=== PATIENT | female | born 1960 | race Caucasian/White ===

== ENCOUNTER 2020-01-11 10:59 | Outpatient (CLI) | payer BC, SELFPAY ==
--- NOTE | ~2020-01-11 | XR_ITS ---
EXAMINATION: XR abdomen/kub 1V EXAM DATE: 01/11/2020 11:26 INDICATION: Microscopic hematuria. TECHNIQUE: Frontal projection(s) of the abdomen for interpretation. Correlation is made to urogram sa me date. FINDINGS: There is expected amount of colonic stool and gas. No small bowel dilation, nonobstructiv e bowel gas pattern. Calcifications in the pelvis are believed to be phleboliths. There is no orga nomegaly suspected. Mild to moderate thoracolumbar dextroscoliosis. There are cholecystectomy clips. . There are cholecystectomy clips. IMPRESSION: Unremarkable abdomen x-ray exam. Reviewed, dictated and finalized at location B. ALCOHOLIZER
--- NOTE | ~2020-01-11 | CT_ITS ---
EXAMINATION: CT abdomen pelvis wo/w con EXAM DATE: 01/11/2020 11:47 INDICATION: Microscopic hematuria. TECHNIQUE: Spiral CT of the abdomen and pelvis was performed without contrast. The patient was then injected with small bolus intravenous Omnipaque 350, followed by delay of approximately 10 minutes to allow collecting system to opacify. A post contrast scan abdomen and pelvis was performed during inj ection of remaining contrast. A total of 130 cc intravenous contrast was administered. The dose-disha th product (DLP) for this examination was 1119.80 mGy-cm. The exposure was tailored according to pat ient size (auto mA exposure control), and iterative reconstruction (ASIR) was used as additional dose reduction technique. There is no prior study for comparison. FINDINGS: There is no hydronephrosis or nephrolithiasis. There is a 1.1 cm cyst in the midpole of th e left kidney. The kidneys enhance symmetrically. There are no suspicious renal lesions. The calyc es and opacified portions of ureters are unremarkable, without filling defects or focal suspicious st rictures. The bladder is unremarkable. The uterus is unremarkable. The liver, spleen, adrenal glands and pancreas are unremarkable. There are cholecystectomy clips. T here is no retroperitoneal or pelvic lymphadenopathy. There is mild scattered arteriosclerotic dise ase. The appendix is normal. The stomach and small bowel are unremarkable. There is mild sigmoid colonic diverticulosis. There is no adjacent inflammatory change to suggest diverticulitis. There is expecte d amount of colonic stool. No free intraperitoneal gas. The heart is normal in size. There are n o pericardial or pleural effusions. The lung bases are unremarkable. Mild to moderate thoracolumbar dextroscoliosis. IMPRESSION: 1. No suspicious genitourinary findings. 2. Mild sigmoid diverticulosis. Reviewed, dictated and finalized at location B. FOOTBALL COACH
[2020-01-11 11:26] LABS: Estimated Glomerular Filt Rate > 60
== END 2020-01-11 11:00 | disposition home or self-care (01) ==
PROVIDERS: PCP Nurse Practitioner Family; Visit Provider Urology
DX: R31.1 Benign essential microscopic hematuria (principal); K57.30 Diverticulosis of large intestine without perforation or abscess without bleeding
CPT/HCPCS: 74018; 74178; Q9967

== ENCOUNTER 2020-03-11 00:16 | Outpatient (CLI) | payer BC, SELFPAY ==
[2020-03-11 18:50] LABS: SARS-CoV-2 RNA PCR Negative
== END 2020-03-11 00:17 | disposition home or self-care (01) ==
LOC: ANHCOVIDDT 00:17
PROVIDERS: PCP Nurse Practitioner Family; Visit Provider Internal Medicine Gastroenterology
DX: Z01.812 Encounter for preprocedural laboratory examination (principal); Z20.822 Contact with and (suspected) exposure to COVID-19
CPT/HCPCS: C9803; U0003

== ENCOUNTER 2020-03-14 00:26 | Day surgery (SDC) | payer BC, SELFPAY ==
[2020-02-26 15:10] VITALS: BMI 27.5
[2020-03-14 06:20] VITALS: BP 137/81; PULSE 87; RESP 20; TEMP 36.6; O2SAT 99; BMI 28.3
[2020-03-14] MEDS: LACTATED RINGERS 1,000 ML 150 ML IV CONT (06:33)
--- NOTE | 2020-03-14 07:16 | P.PNAN_ITS ---
Anes - Initial Pre Proc Eval Procedure: Operation Date: 03/14/20 07:30 Proposed Procedures p Esophagogastroduodenoscopy - Clinton Trinidad DO Date/Time: 03/14/20 07:16 Surgeon: Clinton Trinidad DO Pre Op Diagnosis: GERD Patient Data Age: 59 Gender: F Height: 5 ft 2 in Weight: 70.3 kg Last Vital Signs Temp 97.8 F 03/14/20 06:20 Pulse 87 03/14/20 06:20 Resp 20 03/14/20 06:20 BP 137/81 03/14/20 06:20 Pulse Ox 99 03/14/20 06:20 Allergies Allergy/AdvReac Type Severity Reaction Status Date / Time No Known Allergies Allergy Verified 03/14/20 06:19 Home Medications Medication Instructions Recorded Confirmed Type levothyroxine 200 mcg PO DAILY 02/26/20 02/26/20 History meclizine 25 mg PO PRN PRN 02/26/20 02/26/20 History omeprazole 20 mg PO DAILY 02/26/20 02/26/20 History prednisone 20 mg PO DAILY 02/26/20 02/26/20 History Patient hx anesthesia problems: none Family hx anesthesia problems: none [facility] Past Medical History Medical History (Updated 03/14/20 @ 07:16 by Devendra Magana MD) Anxiety Hypothyroid Social History Social History Smoking packs per day: 1 Smoking cigarettes per day: 20.0 Years smoked: 20 Smoking pack-years: 20.00 Smoking status: Current every day smoker Tobacco type: cigarettes Alcohol intake: current Substance use: never Substance use type: unknown Living arrangements: with family Spiritual care concerns: No Anes - Eval Final PreProcedure Day of Procedure 03/14/20 07:16 Patient weight: normal Heart: regular rate and rhythm Lungs: clear to auscultation Airway: Mallampati scale class II Neurological: alert and oriented Last oral intake: >/= 8 hours ASA classification: II Emergent: no Anesthetic plan: proceed Anesthesia type and monitoring: general GIVS and standard monitoring Informed Consent: The patient's anesthetic plan and its attendant risks and benefits were discussed with the patient/family/POA. Questions were solicited and answers provided to the satisfaction of the patient/family/POA.
--- NOTE | 2020-03-14 07:26 | P.HP_ITS ---
H&P: HPI History of Present Illness Date/Time: 03/14/20 07:26 Chief Complaint: EGD. Narrative: Reason for visit: EGD. This very pleasant lady seen in consultation request of the primary physician. Impression: Your very pleasant lady with nausea and heartburn. This compatible with underlying reflux disease. This improved on omeprazole. Patient due for screening colonoscopy. Anxiety. Hypothyroidism. Tobacco abuse. Recommendation: EGD. Colonoscopy schedule. Patient has been encouraged to quit smoking. History: This very pleasant lady was having complaints of nausea, cramping in heartburn. She was placed on omeprazole back in January. Her symptoms have not improved considerably. Vomiting, hematemesis, dysphagia and odynophagia tonight. She denies any hematochezia, melena or acholic stools. She has never had an EGD or colonoscopy. Patient has a history of hematuria. Physical examination: General: very pleasant patient in no acute distress. HEENT: Head was normocephalic sclerae is clear mouth without masses neck was supple. Heart: Rate rhythm regular without S3 or S4. Lungs: CTA. Abdomen: Soft with no guarding or rigidity. Bowel sounds were active. Neurologic: Cranial nerves 2 through 12 intact. No focal defects. No clonus. Musculoskeletal system: Revealed no joint tenderness or swelling no muscle atrophy. Extremities: Reveal no significant edema. Skin: Warm and dry with normal turgor. Mental status: intact. Patient is alert and oriented. Review of Systems Review of Systems: All systems reviewed & are unremarkable except as noted in HPI and below [facility] Past Medical History Medical History (Updated 03/14/20 @ 07:25 by Clinton Trinidad DO) Anxiety GERD (gastroesophageal reflux disease) Hypothyroid Tobacco abuse Surgical History Surgical History (Updated 03/14/20 @ 07:25 by Clinton Trinidad DO) S/P laparoscopic cholecystectomy Social History Social History Smoking packs per day: 1 Smoking cigarettes per day: 20.0 Years smoked: 20 Smoking pack-years: 20.00 Smoking status: Current every day smoker Tobacco type: cigarettes Alcohol intake: current Substance use: never Substance use type: unknown Living arrangements: with family Spiritual care concerns: No Meds Home Medications and Allergies Home Medications Medication Instructions Recorded Confirmed Type levothyroxine 200 mcg PO DAILY 02/26/20 02/26/20 History meclizine 25 mg PO PRN PRN 02/26/20 02/26/20 History omeprazole 20 mg PO DAILY 02/26/20 02/26/20 History prednisone 20 mg PO DAILY 02/26/20 02/26/20 History Allergies Allergy/AdvReac Type Severity Reaction Status Date / Time No Known Allergies Allergy Verified 03/14/20 06:19 Vital Signs Vital Signs - 24 hr 03/14/20 06:20 Temperature 36.6 C Pulse Rate 87 Respiratory Rate 20 Blood Pressure 137/81 Pulse Oximetry 99
[2020-03-14] MEDS: BENZOCAINE (*SP) 60 ML SPRAY CAN (HURRICAINE) 1 SPRAY MUCOUS MEM (07:28)
[2020-03-14 07:39] VITALS: BP 117/77; PULSE 87; RESP 24; O2SAT 97
[2020-03-14 07:49] VITALS: BP 112/74; PULSE 77; RESP 22; O2SAT 98
[2020-03-14 07:59] VITALS: BP 111/75; PULSE 68; RESP 16; O2SAT 100
[2020-03-14 08:09] VITALS: BP 117/73; PULSE 70; RESP 24; O2SAT 100
== END 2020-03-14 08:23 | disposition home or self-care (01) ==
PROVIDERS: PCP Nurse Practitioner Family; Visit Provider Internal Medicine Gastroenterology
PROC: 0DJ08ZZ Inspection of Upper Intestinal Tract, Via Natural or Artificial Opening Endoscopic (ICD-10-PCS; CPT 43235; principal; 2020-03-14 07:30)
DX: K21.9 Gastro-esophageal reflux disease without esophagitis (principal); F41.9 Anxiety disorder, unspecified; E03.9 Hypothyroidism, unspecified; F17.210 Nicotine dependence, cigarettes, uncomplicated; K29.70 Gastritis, unspecified, without bleeding; R11.0 Nausea; R10.9 Unspecified abdominal pain; K29.60 Other gastritis without bleeding
CPT/HCPCS: 43239; 87081; 88305; C9803; J2001; J2704; J7120; U0003

== ENCOUNTER 2020-04-01 00:19 | Outpatient (CLI) | payer BC, SELFPAY ==
[2020-04-01 18:26] LABS: SARS-CoV-2 RNA PCR Negative
== END 2020-04-01 00:20 | disposition home or self-care (01) ==
LOC: ANHCOVIDDT 00:20
PROVIDERS: PCP Nurse Practitioner Family; Visit Provider Internal Medicine Gastroenterology
DX: Z01.812 Encounter for preprocedural laboratory examination (principal); Z20.822 Contact with and (suspected) exposure to COVID-19
CPT/HCPCS: C9803; U0003; U0005

== ENCOUNTER 2020-04-04 01:01 | Day surgery (SDC) | payer BC, SELFPAY ==
[2020-03-19 09:30] VITALS: BMI 28.2
[2020-04-04 06:19] VITALS: BP 127/78; PULSE 107; RESP 19; TEMP 36.9; O2SAT 96; BMI 27.4
[2020-04-04] MEDS: LACTATED RINGERS 1,000 ML 150 ML IV CONT (06:27)
--- NOTE | 2020-04-04 07:20 | P.PNAN_ITS ---
Anes - Initial Pre Proc Eval Procedure: Operation Date: 04/04/20 07:30 Proposed Procedures p Colonoscopy - Clinton Trinidad DO Date/Time: 04/04/20 07:20 Surgeon: Clinton Trinidad DO Pre Op Diagnosis: functional diarrhea Patient Data Age: 59 Gender: F Height: 5 ft 2 in Weight: 68.1 kg Last Vital Signs Temp 98.5 F 04/04/20 06:19 Pulse 107 H 04/04/20 06:19 Resp 19 04/04/20 06:19 BP 127/78 04/04/20 06:19 Pulse Ox 96 04/04/20 06:19 Allergies Allergy/AdvReac Type Severity Reaction Status Date / Time No Known Allergies Allergy Verified 04/04/20 06:18 Home Medications Medication Instructions Recorded Confirmed Type levothyroxine 200 mcg PO DAILY 02/26/20 04/04/20 History meclizine 25 mg PO PRN PRN 02/26/20 04/04/20 History omeprazole 20 mg PO DAILY 02/26/20 04/04/20 History cholestyramine (with sugar) 1 ea PO DAILY 03/19/20 04/04/20 History dicyclomine 20 mg PO DAILY PRN 03/19/20 04/04/20 History Patient hx anesthesia problems: none Family hx anesthesia problems: none [facility] Past Medical History Medical History (Updated 03/14/20 @ 07:25 by Clinton Trinidad DO) Anxiety GERD (gastroesophageal reflux disease) Hypothyroid Tobacco abuse Surgical History Surgical History (Updated 03/14/20 @ 07:25 by Clinton Trinidad DO) S/P laparoscopic cholecystectomy Social History Social History Smoking packs per day: 1 Smoking cigarettes per day: 20.0 Years smoked: 20 Smoking pack-years: 20.00 Smoking status: Current every day smoker Tobacco type: cigarettes Alcohol intake: current Substance use: never Substance use type: unknown Living arrangements: with family Spiritual care concerns: No Anes - Eval Final PreProcedure Day of Procedure 04/04/20 07:20 Patient weight: normal Heart: regular rate and rhythm Lungs: clear to auscultation Airway: Mallampati scale class II Neurological: alert and oriented Last oral intake: >/= 8 hours ASA classification: II Emergent: no Anesthetic plan: proceed Anesthesia type and monitoring: general GIVS and standard monitoring Informed Consent: The patient's anesthetic plan and its attendant risks and benefits were discussed with the patient/family/POA. Questions were solicited and answers provided to the satisfaction of the patient/family/POA.
--- NOTE | 2020-04-04 07:37 | WPDHPUPDATE1 ---
History and Physical Update Update Date/Time: 04/04/20 07:37 History and Physical has been reviewed, including an updated exam of the patient. There are NO changes in the patient's condition. Risks, benefits, and alternatives have been discussed and questions answered. Patient agrees to proceed with procedure.
[2020-04-04 08:00] VITALS: BP 111/65; PULSE 94; RESP 22; O2SAT 98
[2020-04-04 08:10] VITALS: BP 98/66; PULSE 85; RESP 22; O2SAT 98
[2020-04-04 08:20] VITALS: BP 103/63; PULSE 85; RESP 22; O2SAT 96
== END 2020-04-04 08:30 | disposition home or self-care (01) ==
PROVIDERS: PCP Nurse Practitioner Family; Visit Provider Internal Medicine Gastroenterology
PROC: 0DJD8ZZ Inspection of Lower Intestinal Tract, Via Natural or Artificial Opening Endoscopic (ICD-10-PCS; CPT 45378; principal; 2020-04-04 07:30)
DX: R19.7 Diarrhea, unspecified (principal); K64.8 Other hemorrhoids; K63.5 Polyp of colon; E03.9 Hypothyroidism, unspecified; K21.9 Gastro-esophageal reflux disease without esophagitis; F41.9 Anxiety disorder, unspecified; F17.210 Nicotine dependence, cigarettes, uncomplicated
CPT/HCPCS: 45380; 88305; C9803; J2704; J7120; U0003; U0005

== ENCOUNTER → 2021-04-26 09:52 | Outpatient (CLI) | payer BC, SELFPAY ==
--- NOTE | ~2021-04-26 | XR_ITS ---
EXAMINATION: XR chest 2V 04/26/2021 10:22 INDICATION: Acute cough PROCEDURE: 2 view chest COMPARISON: No prior studies for comparison. FINDINGS: The lungs are clear. The cardiomediastinal silhouette is within normal limits. There are no pleural effusions. There is no pneumothorax suspected. IMPRESSION: 1: NO ACUTE CARDIOPULMONARY DISEASE. Reviewed, dictated and finalized at location A. ENTATIVE MAINTENANCE TECHNICIAN
== END ==
PROVIDERS: PCP Nurse Practitioner Family; Visit Provider Nurse Practitioner Family
DX: R05.1 Acute cough (principal)
CPT/HCPCS: 71046

== ENCOUNTER 2021-10-08 16:07 | Emergency (ER) | payer BC, SELFPAY ==
--- NOTE | ~2021-10-08 | XR_ITS ---
EXAMINATION: XR hand LT min 3V DATE: 10/08/2021 16:23 INDICATION: Left hand pain post fall TECHNIQUE: Posteroanterior, oblique and lateral views of the left hand were obtained. COMPARISON: None. FINDINGS: Oblique extra articular fracture of the distal diaphysis of the left fifth metacarpal. There is one c ortical width palmar/radial displacement. . No other fractures identified. Joint spaces are relativel y preserved. Diffuse osteopenia. Small sclerotic likely bone island at the capitate. IMPRESSION: 1. Mildly displaced extra articular fracture of the left fifth metacarpal.. Reviewed, dictated and finalized at location A.
[2021-10-08 16:18] VITALS: BP 122/87; PULSE 95; RESP 16; TEMP 37.4; O2SAT 98
--- NOTE | 2021-10-08 16:51 | ED.UPPEXIN ---
HPI - Extremity Injury (Upper) General Chief Complaint: Extremity Injury, Upper Stated Complaint: injured hand Time Seen by Provider: 10/08/21 16:45 Source: patient and RN notes reviewed Mode of arrival: ambulatory Limitations: no limitations History of Present Illness HPI narrative: 60-year-old female presents with concern for left hand pain. Reports prior to arrival she tripped, fell, hit her hand against the wall. She reports pain, swelling, bruising to the dorsal aspect of the hand. MD complaint: injury to: left and hand Related Data Home Medications Medication Instructions Recorded Confirmed levothyroxine 200 mcg tablet 200 mcg PO DAILY 02/26/20 04/04/20 meclizine 25 mg tablet 25 mg PO PRN PRN Nausea 02/26/20 04/04/20 omeprazole 20 mg capsule,delayed 20 mg PO DAILY 02/26/20 04/04/20 release cholestyramine (with sugar) 4 gram 1 ea PO DAILY 03/19/20 04/04/20 powder for susp in a packet dicyclomine 20 mg tablet 20 mg PO DAILY PRN cramping 03/19/20 04/04/20 Allergies Allergy/AdvReac Type Severity Reaction Status Date / Time No Known Allergies Allergy Verified 06/04/21 14:43 Review of Systems Review of Systems: CONSTITUTIONAL: Denies malaise, chills, sweats, or fever. SKIN: Denies rash or itching, open skin, laceration, abrasion, redness, warmth MUSCULOSKELETAL: Reports left hand pain, swelling, bruising NEUROLOGIC: Denies numbness, weakness All systems reviewed & are unremarkable except as noted in HPI and below PMFSH Past Medical History Medical History (Updated 10/08/21 @ 16:53 by Alda Freed NP) Anxiety GERD (gastroesophageal reflux disease) Hypothyroid IBS (irritable bowel syndrome) D Tobacco abuse Surgical History Surgical History (Updated 06/04/21 @ 14:43 by Lakeshia Pascual) S/P laparoscopic cholecystectomy Social History Social History (System 06/04/21 @ 14:43 by Lakeshia Pascual) Smoking packs per day: 1 Smoking cigarettes per day: 20.0 Years smoked: 20 Smoking pack-years: 20.00 Smoking status: Current every day smoker Tobacco type: cigarettes Alcohol intake: current Substance use: never Substance use type: unknown Spiritual care concerns: No Comments At time of signature, agree with nursing past medical, surgical, social and family history. There is no relevant family history pertinent to the presenting complaint Exam Narrative: GENERAL: Well-appearing, well-nourished, and in no acute distress. HEAD: Normocephalic, atraumatic. EYES: PERRLA, conjunctivae clear NECK: Supple. CHEST: Speaks in full sentences. No respiratory distress. HEART: Regular rate and rhythm. Normal and equal peripheral pulses. EXTREMITIES: Left hand, digits have normal sensation, limited range of motion. Lateral hand edema and ecchymosis. 3/5 strength with fifth digit flexion and extension, pain with flexion. Normal sensation with sensitivity to light touch and pain. Lateral tenderness. No open wounds, no skin tenting, no devitalized tissue or atrophy, no trophic changes, no obvious deformity, alignment normal, nearby joints and structures intact. Distal pulses palpable and equal bilaterally, skin warm, dry, pink. Capillary refill less than 3 seconds. SKIN: Warm, dry, no rash. NEURO: Alert and oriented x3. PSYCH: Normal mood and affect Course Course Emergency Course: Patient is aware of diagnosis, understands and agrees to treatment plan. Anticipatory guidance given. Patient agrees to follow-up as directed and is aware of reasons to seek care at the emergency department. Portions of this record may have been created with voice recognition software Level of Care: Express Care Visit Vital Signs Vital signs: Vital Signs Temperature 99.4 F 10/08/21 16:18 Pulse Rate 95 10/08/21 16:18 Respiratory Rate 16 10/08/21 16:18 Blood Pressure 122/87 10/08/21 16:18 Pulse Oximetry 98 10/08/21 16:18 Temperature 99.4 F 10/08/21 16:18 Pulse Rate 95 10/08/21
== END 2021-10-08 17:10 | disposition home or self-care (01) ==
PROVIDERS: Emergency Provider Nurse Practitioner; PCP Physician Assistant
DX: S62.307A Unspecified fracture of fifth metacarpal bone, left hand, initial encounter for closed fracture (principal); W01.0XXA Fall on same level from slipping, tripping and stumbling without subsequent striking against object, initial encounter; F17.210 Nicotine dependence, cigarettes, uncomplicated; K21.9 Gastro-esophageal reflux disease without esophagitis; E03.9 Hypothyroidism, unspecified
CPT/HCPCS: 29125; 73130; 99214; A4565; G0463

== ENCOUNTER 2023-03-04 10:35 | Outpatient (CLI) | payer BC, SELFPAY ==
--- NOTE | ~2023-03-04 | CT_ITS ---
EXAMINATION: CT abdomen pelvis w con DATE: 03/04/2023 11:09 INDICATION: Unspecified abdominal pain. TECHNIQUE: Computed tomography (CT) of the abdomen and pelvis was performed with 100 mL Omnipaque 350 intravenous contrast. Automated exposure control and iterative reconstruction technique were employe d. The dose-length product was 492.59 mGy-cm. COMPARISON: CT abdomen and pelvis 01/11/2020 FINDINGS: The visualized portions of the lung bases demonstrate mild atelectasis. No pleural effusion . The heart size is normal. No pericardial effusion. There is a 15 mm cyst in the liver. Calcificatio ns in the liver are consistent with old granulomatous disease. There are changes of cholecystectomy. The pancreas and adrenal glands are normal. There is cortical thinning of the kidneys. There is a 14 mm cyst in left kidney. There is diverticulosis of the colon without evidence of diverticulitis. Ther e are no dilated loops of bowel. The appendix is normal. There are no pathologically enlarged lymph n odes. There is no free intraperitoneal fluid. Aortic atherosclerosis is noted. There is 16 degrees de xtroscoliosis of thoracolumbar spine. There is severe lumbar spondylosis. IMPRESSION: 1. No etiology for the patient's symptoms. Reviewed, dictated and finalized at location A. [facility]
[2023-03-04 11:03] LABS: Estimated Glomerular Filt Rate > 60
== END 2023-03-04 10:36 | disposition home or self-care (01) ==
PROVIDERS: PCP Physician Assistant; Visit Provider Nurse Practitioner Family
DX: R10.9 Unspecified abdominal pain (principal); R19.7 Diarrhea, unspecified
CPT/HCPCS: 74177; Q9967

== ENCOUNTER 2023-05-19 10:40 | Emergency (ER) | payer BC, SELFPAY ==
--- NOTE | 2023-05-19 10:47 | ED.URI ---
HPI - URI/Sore Throat General Chief Complaint: Upper Respiratory Infection Stated Complaint: sore throat Time Seen by Provider: 05/19/23 10:47 Source: patient Mode of arrival: ambulatory Limitations: no limitations History of Present Illness HPI Narrative: Russell is a 62-year-old female patient presenting to the clinic today with complaints of a fever, sore throat, cough, runny nose/congestion x2 days. MD elicited complaint: sore throat and nasal congestion Related Data Home Medications Medication Instructions Recorded Confirmed levothyroxine 200 mcg tablet 200 mcg PO DAILY 02/26/20 05/19/23 alprazolam 0.5 mg tablet (Xanax) 0.5 mg PO QHS PRN Anxiety 02/08/23 05/19/23 escitalopram oxalate 10 mg tablet 10 mg PO DAILY 02/08/23 05/19/23 metformin 750 mg tablet,extended 750 mg PO DAILY 05/19/23 05/19/23 release 24 hr Allergies Allergy/AdvReac Type Severity Reaction Status Date / Time No Known Allergies Allergy Verified 05/19/23 10:47 Review of Systems Review of Systems: Pertinent positives per HPI. Patient denies any fever, chills, rash, headache, visual changes, dizziness, shortness of breath, chest pain, palpitations, nausea, vomiting, diarrhea, constipation, abdominal pain, or any urinary issues. PMFSH Past Medical History Medical History Abdominal pain Anxiety Borderline diabetes GERD (gastroesophageal reflux disease) Hypothyroid IBS (irritable bowel syndrome) D Thyroid disease Tobacco abuse Tobacco use Surgical History Surgical History S/P laparoscopic cholecystectomy Family History Family History Mother ALS (amyotrophic lateral sclerosis) Father Arthritis Social History Social History Smoking packs per day: 1 Smoking cigarettes per day: 20.0 Years smoked: 20 Smoking pack-years: 20.00 Smoking status: Current every day smoker Tobacco type: cigarettes Alcohol intake: never Substance use: never Substance use type: unknown Living arrangements: with family Spiritual care concerns: No Comments At the time of my signature, I reviewed and agree with the nursing past medical, surgical, social, and family history. There is no relevant family history pertinent to the patient complaint. Exam Narrative: General: Well-developed, well nourished, in no apparent distress Head: Normocephalic, atraumatic Eyes: Pupils equally round and reactive to light bilaterally, EOM intact, sclera and conjunctive clear, no discharge, lids normal Ears: TMs intact and clear, ear canals clear, no drainage, grossly hearing normal. Nose: Nares patent, no discharge, no inflammation, no sinus tenderness. Mouth: Oral pharynx without lesions or masses, good dentition, MMM. Neck: Supple, trachea midline, no enlargement of anterior or posterior cervical nodes, no thyroid masses or goiter palpable. Cardio: Regular rate and rhythm, s1 and s2 normal, no murmur appreciated. Resp: Clear to auscultation bilaterally, no rhonchi, rales, wheezing or rubs Course Course Emergency Course: Portions of this record may have been created with voice recognition software. Level of Care: Express Care Visit Vital Signs Vital signs: Vital signs reviewed MDM - URI/Sore Throat MDM Narrative Medical decision making narrative: At the time of visit patient is resting comfortably on the exam table. Patient appears to be nontoxic. Labs: COVID, influenza, and strep test were all negative in the clinic today. We will send strep for culture Plan: I suspect patient has URI/pharyngitis/viral syndrome. Supportive measures were discussed with the patient and they voiced understanding discharge instructions and agrees to treatment plan. Return precautions reviewed Differential Diagnosis Differential diagnosis: Likely upper respirat
[2023-05-19 10:49] VITALS: BP 112/82; PULSE 88; RESP 16; TEMP 37.2; O2SAT 99
== END 2023-05-19 11:13 | disposition home or self-care (01) ==
PROVIDERS: Emergency Provider Nurse Practitioner Family; PCP Nurse Practitioner Family
DX: B34.9 Viral infection, unspecified (principal); J06.9 Acute upper respiratory infection, unspecified; J02.9 Acute pharyngitis, unspecified; F17.210 Nicotine dependence, cigarettes, uncomplicated; K21.9 Gastro-esophageal reflux disease without esophagitis; E03.9 Hypothyroidism, unspecified; F41.9 Anxiety disorder, unspecified
CPT/HCPCS: 87081; 87804; 87880; 99213; G0463

== ENCOUNTER 2023-11-04 15:52 | Emergency (ER) | payer BC, SELFPAY ==
[2023-11-04 16:04] VITALS: BP 145/73; PULSE 103; RESP 15; TEMP 37.3; O2SAT 97
--- NOTE | 2023-11-04 16:33 | ED.URI ---
HPI - URI/Sore Throat General Chief Complaint: Upper Respiratory Infection Stated Complaint: MOORE,bodyaches,congested,fever Time Seen by Provider: 11/04/23 16:33 Source: patient, RN notes reviewed and old records reviewed Mode of arrival: ambulatory Limitations: no limitations History of Present Illness HPI Narrative: Patient presents with complaints of longstanding cough. She recently finished Augmentin, has been on doxycycline for a couple of days. She reports that she had to cancel a pulmonology appointment because she did not feel well enough to go, this has been rescheduled. Patient would like to know why her cough is so longstanding. She has not been using albuterol inhaler as prescribed. She has taken 3 doses of her doxycycline. She does report that she feels better since starting the doxycycline, but she is frustrated that symptoms have not completely subsided. She denies any fever, chills, sweats. She does report becoming short of breath when she coughs too hard. She recently had a cardiac workup, negative. She denies any fever, chills, sweats. She voices no other concerns or complaints at this time. Related Data Home Medications Medication Instructions Recorded Confirmed alprazolam 0.5 mg tablet (Xanax) 0.5 mg PO QHS PRN Anxiety 02/08/23 11/04/23 fluticasone propionate 50 2 inh inhalation Q12H 08/16/23 11/04/23 mcg/actuation blister powder for inhalation Allergies Allergy/AdvReac Type Severity Reaction Status Date / Time No Known Allergies Allergy Verified 11/04/23 15:59 Review of Systems Review of Systems: All systems reviewed & are unremarkable except as noted in HPI and below Constitutional: Constitutional: Reports no additional constitutional complaints ENT: Reports system reviewed and no additional complaints, except as documented and Reports as per HPI Cardiovascular: Cardiovascular: Reports as per HPI and Reports no additional cardiovascular complaints Respiratory: Respiratory: Reports as per HPI and Reports no additional respiratory complaints Gastrointestinal: Gastrointestinal: Reports no additional gastrointestinal complaints [facility] Past Medical History Medical History Abdominal pain Anxiety Borderline diabetes GERD (gastroesophageal reflux disease) Hypothyroid IBS (irritable bowel syndrome) D Thyroid disease Tobacco abuse Tobacco use Surgical History Surgical History H/O LEEP S/P laparoscopic cholecystectomy Family History Family History Mother ALS (amyotrophic lateral sclerosis) Father Arthritis Rheumatism Gout Sibling Diabetes mellitus Hypertension Depression Anxiety Grandparent Cancer Social History Social History Smoking packs per day: 1 Smoking cigarettes per day: 20.0 Years smoked: 35 Smoking pack-years: 35.00 Smoking status: Current every day smoker Tobacco type: cigarettes Alcohol intake: never Substance use: never Substance use type: unknown Living arrangements: with family Spiritual care concerns: No Exam Const: General: cooperative, no acute distress, alert, awake and tired appearing Orientation/consciousness: oriented to person, oriented to place and oriented to time HENMT: Head: normal to inspection Ears: TM's normal bilaterally Mouth: Yes moist mucous membranes Throat: posterior oropharynx abnormal erythema Resp: Effort & Inspection: normal respiratory effort and able to speak in complete sentences Auscultation: clear to auscultation bilaterally, no crackles, no rales, no rhonchi and no wheezes Cardio: Palpation: normal PMI Rate: regular rate Rhythm: regular rhythm Heart sounds: S1 normal heart sound present and S2 normal heart sound present Neuro: General: oriented to person, oriented to place and oriented to time Cranial nerv
== END 2023-11-04 17:02 | disposition home or self-care (01) ==
PROVIDERS: Emergency Provider Nurse Practitioner Family; PCP Nurse Practitioner Family
DX: R05.9 Cough, unspecified (principal); R03.0 Elevated blood-pressure reading, without diagnosis of hypertension; K21.9 Gastro-esophageal reflux disease without esophagitis; E03.9 Hypothyroidism, unspecified; F41.9 Anxiety disorder, unspecified; F17.210 Nicotine dependence, cigarettes, uncomplicated
CPT/HCPCS: 99211; G0463

== ENCOUNTER 2023-11-11 13:27 | Outpatient (CLI) | payer BC, SELFPAY ==
--- NOTE | 2023-11-12 07:18 | WPDPFTINT ---
PFT Procedure Performed PFT Procedure Performed Spirometry with Pre/Post Bronchodilator Plethysmography (Lung Vol) Diffusing Cap (DLCO) Flow Vol Loop PFT Interpretation This is a pulmonary function test with pre and post-bronchodilator spirometry, plethysmography and diffusing capacity. The test was performed and results interpreted in accordance with the 2019 and 2005 ATS/ERS Task Force guidelines respectively using the Global Lung Function Initiative-2012 reference equations. Patient demonstrated good effort and cooperation. Reproducibility criteria were met. The quality of the pre bronchodilator spirometry maneuver was Grade A and post bronchodilator spirometry maneuver was Grade B. Findings: Spirometry: The contour the inspiratory and expiratory flow tracing are normal. The pre bronchodilator FVC is 3.21 L, 108% predicted. The pre bronchodilator FEV1 is 2.38 L, 102% predicted. The pre bronchodilator FEV1:FVC ratio 74%. The post bronchodilator FVC is 3.16 L, representing 1% decrease. The post bronchodilator FEV1 is 2.35 L, representing 1% decrease. The post bronchodilator FEV1:FVC ratio 74%. Plethysmography: The total lung capacity is 5.06 L, 103% predicted. The functional residual capacity is 1.92 L, 69% predicted. The residual volume is 1.85 L, 93% predicted. Diffusing capacity: The diffusing capacity unadjusted for hemoglobin and carboxyhemoglobin is 17.2, 82% predicted. The diffusing capacity adjusted for alveolar volume is 4.00, 90% predicted. Impression: The spirometry is normal without evidence of an obstructive abnormality. There is no significant improvement after inhaling a single dose of albuterol. The lung volumes are normal. The diffusing capacity is normal. There are no prior studies for comparison
== END 2023-11-11 13:28 | disposition home or self-care (01) ==
LOC: ANHPFT 13:30
PROVIDERS: PCP Nurse Practitioner Family; Visit Provider Nurse Practitioner Family
DX: R06.09 Other forms of dyspnea (principal)
CPT/HCPCS: 94060; 94726; 94729

== ENCOUNTER 2023-11-12 09:46 | Outpatient (CLI) | payer BC, SELFPAY ==
--- NOTE | ~2023-11-12 | XR_ITS ---
Clinical Indication: Cough PA and lateral views of the chest: Comparison: 04/26/2021 Findings: Probable focal calcific granuloma left lung base, unchanged. The lungs are otherwise clear, without evidence of focal consolidation or pleural effusion. Cardiomediastinal silhouette is within normal limits. Bones and soft tissues are unremarkable. Impression: No acute abnormality. Reviewed, dictated and finalized at location . Impression: No acute abnormality.
== END 2023-11-12 09:47 | disposition home or self-care (01) ==
LOC: ANHIMG 09:50
PROVIDERS: PCP Nurse Practitioner Family; Visit Provider Nurse Practitioner Family
DX: R05.9 Cough, unspecified (principal)
CPT/HCPCS: 71046